=== PATIENT | male | born 2000 | race Caucasian/White ===

== ENCOUNTER 2022-04-16 00:13 | Emergency (ER) | payer SELFPAY ==
[2022-04-16] MEDS ORDERED: LIDOCAINE 1% 20 ML MDV ONE (00:26)
[2022-04-16] MEDS ORDERED: AMOX/K CLAV 875 MG TAB ONE (00:26)
[2022-04-16] MEDS ORDERED: TETANUS & DIPHTHERIA TOX,ADULT 0.5 ML VIAL ONE (00:27)
--- NOTE | 2022-04-16 00:46 | ER ---
Nurse's Notes [facility] Name: Augie Irving Age: 22 yrs Sex: Male : 2000 Arrival Date: 04/16/2022 Time: 00:17 Bed 7 Private MD: Diagnosis: Laceration without foreign body of left hand Presentation: 04/16 00:23 Chief complaint: Patient states: "I was fishing and I went to go kill the fish and it tw5 folded up on my hand, and I cut my hand.". Coronavirus screen: Vaccine status: Patient reports being unvaccinated. Ebola Screen: Patient negative for fever greater than or equal to 101.5 degrees Fahrenheit, and additional compatible Ebola Virus Disease symptoms Patient denies exposure to infectious person. Patient denies travel to an Ebola-affected area in the 21 days before illness onset. Initial Sepsis Screen: Does the patient meet any 2 criteria? No. Patient's initial sepsis screen is negative. Does the patient have a suspected source of infection? No. Patient's initial sepsis screen is negative. Risk Assessment: Do you want to hurt yourself or someone else? Patient reports no desire to harm self or others. Onset of symptoms was April 16, 2022 at 00:00. 00:23 Method Of Arrival: Ambulatory tw5 00:23 Acuity: MOUSTAPHA 4 tw5 Triage Assessment: 00:25 General: Appears in no apparent distress. Behavior is calm, cooperative, appropriate tw5 for age. Pain: Denies pain. Musculoskeletal: Range of motion: intact in all extremities. Injury Description: Laceration sustained to medial aspect of left hand. Historical: - Allergies: 00:25 No Known Allergies; tw5 - Home Meds: 00:25 None [Active]; tw5 - PMHx: 00:25 None; tw5 - PSHx: 00:25 None; tw5 - Immunization history:: Flu vaccine is not up to date. - Social history:: Smoking status: Patient reports the use of cigarette tobacco products, denies chronic smoking, but will smoke occasionally, Reported history of juuling and/or vaping. Screenin:27 Abuse screen: Denies threats or abuse. Denies injuries from another. Nutritional tw5 screening: No deficits noted. Tuberculosis screening: No symptoms or risk factors identified. Fall Risk None identified. Vital Signs: 00:23 BP 137 / 61; Pulse 87; Resp 18; Temp 98.3; Pulse Ox 98% on R/A; Weight 61.23 kg; Height tw5 5 ft. 11 in. (180.34 cm); Pain 0/10; 00:23 Body Mass Index 18.83 (61.23 kg, 180.34 cm) tw5 ED Course: 00:17 Patient arrived in ED. ja2 00:19 [facility] snw 00:20 Kwabena Collazo MD is Attending Physician. snw 00:23 Austin Aparicio, KENYATTA is Primary Nurse. as6 00:25 Triage completed. tw5 00:25 Arm band placed on right wrist. tw5 00:49 Assist provider with laceration repair on left hand using sutures. Set up tray. aa9 Performed by Bouchra DAI Patient tolerated well. Patient did not have IV access during this emergency room visit. 00:50 Patient has correct armband on for positive identification. Adult w/ patient. 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 Exp: as6 11/07/2023. Lot #: [id number]. } Route: IM; Site: right deltoid; 00:46 Drug: Lidocaine (1 %) 5 mg {Note: administered by provider .} Route: Infiltration; aa9 Medication: 00:27 Vaccine Information Statement (VIS) provided today. Questions and/or concerns addressed. VIS edition date: April 16, 2022. Outcome: 00:45 Discharge ordered by . snw 00:50 Discharged to home ambulatory. aa9 00:50 Condition: stable 00:50 Discharge instructions given to patient, Instructed on discharge instructions, follow up and referral plans. medication usage, Demonstrated understanding of instructions, follow-up care, medications, Prescriptions given X 1. 00:51 Patient left the ED. aa9 Signatures: Bouchra Hurd FNP-C FNP-Keny KaneCindy ja2 Lola Jaime tw5 Austin Aparicio, KENYATTA YOU as6 Miley Plummer RN RN aa9
--- NOTE | 2022-04-16 00:46 | EDPHYS ---
Physician Documentation [facility] Name: Augie Irving Age: 22 yrs Sex: Male : 2000 Arrival Date: 04/16/2022 Time: 00:17 Bed 7 Private MD: ED Physician Kwabena Collazo HPI: 04/16 00:46 This 22 yrs old Male presents to ER via Ambulatory with complaints of Hand Injury. snw 00:46 The patient or guardian reports injury, a laceration, clean, 2.5 cm(s). The complaints snw affect the left hand diffusely. Context: The problem was sustained outdoors, resulted from knife used to cut fish slipped. Onset: The symptoms/episode began/occurred suddenly, just prior to arrival. Associated signs and symptoms: The patient has no apparent associated signs or symptoms. Severity of symptoms: At their worst the symptoms were mild. The patient has not experienced similar symptoms in the past. The patient has not recently seen a physician. Historical: - Allergies: 00:25 No Known Allergies; tw5 - Home Meds: 00:25 None [Active]; tw5 - PMHx: 00:25 None; tw5 - PSHx: 00:25 None; tw5 - Immunization history:: Flu vaccine is not up to date. - Social history:: Smoking status: Patient reports the use of cigarette tobacco products, denies chronic smoking, but will smoke occasionally, Reported history of juuling and/or vaping. ROS: 00:44 Constitutional: Negative for fever, chills, and weight loss, Eyes: Negative for injury, snw pain, redness, and discharge, ENT: Negative for injury, pain, and discharge, Neck: Negative for injury, pain, and swelling, Cardiovascular: Negative for chest pain, palpitations, and edema, Respiratory: Negative for shortness of breath, cough, wheezing, and pleuritic chest pain, Abdomen/GI: Negative for abdominal pain, nausea, vomiting, diarrhea, and constipation, Back: Negative for injury and pain, : Negative for injury, bleeding, discharge, and swelling, MS/Extremity: Negative for injury and deformity, Neuro: Negative for headache, weakness, numbness, tingling, and seizure, Psych: Negative for depression, anxiety, suicide ideation, homicidal ideation, and hallucinations. 00:44 Skin: Positive for laceration(s), of the medial aspect of left hand. Exam: 00:43 Constitutional: This is a well developed, well nourished patient who is awake, alert, snw and in no acute distress. Head/Face: Normocephalic, atraumatic. Eyes: Pupils equal round and reactive to light, extra-ocular motions intact. Lids and lashes normal. Conjunctiva and sclera are non-icteric and not injected. Cornea within normal limits. Periorbital areas with no swelling, redness, or edema. ENT: Nares patent. No nasal discharge, no septal abnormalities noted. Tympanic membranes are normal and external auditory canals are clear. Oropharynx with no redness, swelling, or masses, exudates, or evidence of obstruction, uvula midline. Mucous membranes moist. Neck: Trachea midline, no thyromegaly or masses palpated, and no cervical lymphadenopathy. Supple, full range of motion without nuchal rigidity, or vertebral point tenderness. No Meningismus. Chest/axilla: Normal chest wall appearance and motion. Nontender with no deformity. No lesions are appreciated. Cardiovascular: Regular rate and rhythm with a normal S1 and S2. No gallops, murmurs, or rubs. Normal PMI, no JVD. No pulse deficits. Respiratory: Lungs have equal breath sounds bilaterally, clear to auscultation and percussion. No rales, rhonchi or wheezes noted. No increased work of breathing, no retractions or nasal flaring. Abdomen/GI: Soft, non-tender, with normal bowel sounds. No distension or tympany. No guarding or rebound. No evidence of tenderness throughout. Back: No spinal tenderness. No costovertebral tenderness. Full range of motion. MS/ Extremity: Pulses equal, no cyanosis. Neurovascular intact. Full, normal range of motion. Neuro: Awake and alert, GCS 15, oriented to person, place, time, and situation. Cranial nerves II-XII grossly intact. Motor strength 5/5 in all extremities. Sensory grossly intact. Cerebellar exam normal. Normal gait. 00:43 Skin: Appearance: normal except for affected area, injury, laceration(s), the wound is approximately 2.5 cm(s), with a depth of 1 cm(s), of the medial aspect of left hand. Vital Signs: 00:23 BP 137 / 61; Pulse 87; Resp 18; Temp 98.3; Pulse Ox 98% on R/A; Weight 61.23 kg; Height tw5 5 ft. 11 in. (180.34 cm); Pain 0/10; 00:23 Body Mass Index 18.83 (61.23 kg, 180.34 cm) tw5 Laceration: 00:42 Wound Repair of 2.5cm ( 1.0in ) subcutaneous laceration to medial aspect of left hand. snw Linear shaped.. Distal neuro/vascular/tendon intact. Anesthesia: Local anesthetic administered with 4 mls of 1% lidocaine. Wound prep: Moderate cleansing with hibiclenz. Skin closed with 3 4-0 Prolene using simple sutures and sterile technique. Dressed with Neosporin, pressure dressing. Patient tolerated well. MDM: 00:20 Patient medically screened. snw 00:46 Data reviewed: vital signs, nurses notes. Data interpreted: Pulse oximetry: on room air snw is 98 %. Interpretation: normal. Counseling: I had a detailed discussion with the patient and/or guardian regarding: the historical points, exam findings, and any diagnostic results supporting the discharge/admit diagnosis, the need for outpatient follow up, to return to the emergency department if symptoms worsen or persist or if there are any questions or concerns that arise at home. Special discussion: Based on the history and exam findings, there is no indication for further emergent testing or inpatient evaluation. I discussed with the patient/guardian the need to see the primary care provider for further evaluation of the symptoms. 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 Lot #: [id number]. } Route: IM; Site: right deltoid; 00:46 Drug: Lidocaine (1 %) 5 mg {Note: administered by provider .} Route: Infiltration; aa9 Disposition: 01:12 Co-signature as Attending Physician, Kwabena Collazo MD. rn Disposition Summary: 04/16/22 00:45 Discharge Ordered Location: Home snw Condition: Stable snw Diagnosis - Laceration without foreign body of left hand snw Followup: snw - With: Emergency Department - When: As needed - Reason: Worsening of condition Followup: snw - With: Private Physician - When: 7 - 10 days - Reason: Recheck today's complaints, Continuance of care, Staple/Suture removal, Re-evaluation by your physician Discharge Instructions: - Discharge Summary Sheet snw - Laceration Care, Adult snw - Sutured Wound Care snw Forms: - Medication Reconciliation Form snw - Thank You Letter snw - Antibiotic Education snw - Prescription Opioid Use snw Prescriptions: - Augmentin 875-125 mg Oral Tablet - take 1 tablet by ORAL route every 12 hours for 10 days; 20 tablet; Refills: 0, snw Product Selection Permitted Signatures: Bouchra Hurd FNP-C 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
[2022-04-16 00:55] VITALS: BP 137/61; TEMP 98.3; O2SAT 98
== END 2022-04-16 00:51 | disposition home or self-care (01) ==
LOC: ER 00:13
PROC: 0JQK0ZZ Repair Left Hand Subcutaneous Tissue and Fascia, Open Approach (ICD-10-PCS; principal; 2022-04-16)
DX: S61.412A Laceration without foreign body of left hand, initial encounter (principal); Z23 Encounter for immunization
CPT/HCPCS: 90471; 90714; 99283